=== PATIENT | male | born 1985 | race Caucasian/White ===

== ENCOUNTER → 2018-07-16 | Outpatient (CLI) | payer OTHER ==
[~2018-07-16] MED LIST: OMNIPAQUE 350 MG/ML, 100ML BOTTLE ONE
== END | disposition home or self-care (01) ==
LOC: CFH 11:07
PROVIDERS: ATTEND Genetic Counselor, MS
DX: R16.1 Splenomegaly, not elsewhere classified (principal)
CPT/HCPCS: 74177; Q9967